=== PATIENT | male | born 1995 | race Caucasian/White ===

== ENCOUNTER 2017-04-05 03:20 | Emergency (ER) | payer BC ==
[2017-04-05 03:38] VITALS: RESP 18; TEMP 97.5
--- NOTE | 2017-04-05 03:43 | EDPHY ---
H & P Stated Complaint: Fell off balcony (10 feet), ETOH, +LOC, L elbow, L ankle, Head pain. HPI/ROS: HPI CHIEF COMPLAINT: Fall 10 feet off a balcony, left elbow pain, left ankle pain, head injury at 4:00 p.m. afternoon or 12 hours ago. HISTORY OF PRESENT ILLNESS: This patient very pleasant 22-year-old male he denies having any significant medical history does not take any daily medications he presents emergency room after he fell off a balcony 10 feet. This happened at 4:00 p.m. this afternoon or 12 hours ago. He came into the emergency room tonight with his girlfriend by private vehicle for ongoing left ankle pain and left elbow pain. Patient reports that he fell 10 feet landing on his left elbow left ankle. Positive LOC. Patient reports that he was intoxicated time after drinking multiple beers multiple shots. He states the reason he came to the emergency room denies his ongoing left ankle pain and left elbow pain. He denies chest pain or shortness of breath denies abdominal pain. He did have head strike complains of a headache left posterior occiput region. He fell 10 feet and against concrete. This was unwitnessed by his girlfriend. He now presents emergency room GCS 15 alert or x4. Past Medical History: Denies significant medical history Past Surgical History: Denies significant surgical history Social History: [employer] student, endorses alcohol this afternoon. Denies illicit drugs or tobacco. Family History: Noncontributory ROS REVIEW OF SYSTEMS: A comprehensive 10 point review of systems is otherwise negative aside from elements mentioned in the history of present illness. Exam Constitutional appears well nontoxic, triage nursing summary reviewed, vital signs reviewed, awake/alert. Eyes normal conjunctivae and sclera, EOMI, PERRLA. HENT head/neck left posterior occiput hematoma present, no laceration, moist mucus membranes, no epistaxis, neck supple/ no meningismus, no raccoon eyes. Respiratory clear to auscultation bilaterally, normal breath sounds, no respiratory distress, no wheezing. Cardiovascular rate normal, regular rhythm, no murmur, no edema, distal pulses normal. Gastrointestinal soft, non-tender, no rebound, no guarding, normal bowel sounds, no distension, no pulsatile mass. Genitourinary no CVA tenderness. Musculoskeletal no midline vertebral tenderness, full range of motion, no calf swelling, no tenderness of extremities, no meningismus, good pulses, neurovascularly intact. Left upper extremity: Limited range of motion due to pain and swelling of the left elbow. There is swelling to left lateral elbow. He is distally neurovascular intact good distal pulse. Good cap refill. Good stone belt sander strength. Left lower extremity: Compartments are soft. Tender palpation over the lateral malleolus and lateral foot. Good distal pulse. Good cap refill. Sensation intact. Neurovascular intact. Skin pink, warm, & dry, no rash, skin atraumatic. Neurologic awake, alert and oriented x 3, AAOx3, moves all 4 extremities equally, motor intact, sensory intact, CN II-XII intact, normal cerebellar, normal vision, normal speech. Psychiatric normal mood/affect. Heme/Lymph/Immune no lymphadenopathy. Differential Diagnosis: Includes but is not limited to in a particular order closed-head injury, intracranial bleed, skull fracture, cervical spine injury, chest wall injury, elbow fracture, left ankle sprain, left ankle fracture, left foot fracture left foot sprain. Medical Decision Making: Plan for this patient CT head without contrast CT cervical spine without contrast, IV pain control with IV pain medicine fentanyl , IV Zofran nausea, IV fluids for hydration, chest x-ray two view, x-ray left elbow, x-ray left foot, x-ray left ankle. Re-evaluation: CT scan of the head and neck without contrast are negative for acute traumatic injury called to me by Dr. Oscar Underwood X-ray of the chest two view interpreted by myself. Negative for acute cardiopulmonary disease specifically no traumatic injury. No pneumothorax visualized. X-ray of the left elbow shows a radial head fracture. X-ray of the left ankle shows soft tissue swelling but no fracture. X-ray of the left foot shows soft tissue swelling but no fracture. This patient be splinted posterior long-arm for his left radial head fracture will need orthopedic follow-up. Be placed in a sling as well for comfort. Walking boot for his left ankle sprain. Additionally went over return precautions understands return emergency room if develops worsening symptoms includes headache, vomiting worsening pain. I will provide him ibuprofen for pain control as well as [place]. Close orthopedic follow-up. I have answered all his questions any understands. Source: Patient - Personal History Current Tetanus/Diphtheria Vaccine: Unsure Current Tetanus Diphtheria and Acellular Pertussis (TDAP): Unsure - Medical/Surgical History Hx Asthma: No Hx Chronic Respiratory Disease: No Hx Diabetes: No Hx Cardiac Disease: No Hx Renal Disease: No Hx Cirrhosis: No Hx Alcoholism: No Hx HIV/AIDS: No Hx Splenectomy or Spleen Trauma: No Other PMH: ADHD. - Social History Smoking Status: Never smoked Constitutional: Initial Vital Signs Temperature (C) 36.4 C 04/05/17 03:33 Heart Rate 86 04/05/17 03:33 Respiratory Rate 18 04/05/17 03:33 Blood Pressure 123/70 H 04/05/17 03:33 O2 Sat (%) 95 04/05/17 03:33 O2 Delivery Mode Room Air Allergies/Adverse Reactions: No Known Allergies Allergy (Verified 05/07/14 10:16) Home Medications: Medication Instructions Recorded Amphet Asp and D/Amphet [Adderall] 10 mg PO 05/07/14 Hydrocodone/APAP 5/325 [Day[place] 1 - 2 tab PO Q4H PRN #10 tab 04/05/17 5/325] Ibuprofen [Motrin (*)] 800 mg PO Q6-8PRN #10 tab 04/05/17 Medical Decision Making - Data Points Medications Given: Discontinued Medications Fentanyl (Sublimaze) 50 mcg IVP EDNOW ONE Stop: 04/05/17 03:48 Last Admin: 04/05/17 03:59 Dose: 50 mcg Sodium Chloride (Ns) 1,000 mls @ 0 mls/hr IV ONCE ONE PRN Reason: Wide Open Stop: 04/05/17 03:48 Last Admin: 04/05/17 03:58 Dose: 1,000 mls Ondansetron HCl (Zofran) 4 mg IVP EDNOW ONE Stop: 04/05/17 03:48 Last Admin: 04/05/17 03:59 Dose: 4 mg Departure - Departure Disposition: Home, Routine, Self-Care Clinical Impression: Fall Qualifiers: Encounter type: initial encounter Qualified Code(s): W19.XXXA - Unspecified fall, initial encounter Elbow fracture, left Qualifiers: Encounter type: initial encounter Fracture type: closed Qualified Code(s): S42.402A - Unspecified fracture of lower end of left humerus, initial encounter for closed fracture Foot fracture, left Qualifiers: Encounter type: initial encounter Fracture type: closed Qualified Code(s): S92.902A - Unspecified fracture of left foot, initial encounter for closed fracture Ankle sprain Qualifiers: Encounter type: initial encounter Involved ligament of ankle: other ligament Laterality: left Qualified Code(s): S93.492A - Sprain of other ligament of left ankle, initial encounter Closed head injury Qualifiers: Encounter type: initial encounter Qualified Code(s): S09.90XA - Unspecified injury of head, initial encounter Concussion Qualifiers: Encounter type: initial encounter Loss of consciousness presence/duration: with LOC of unspecified duration Qualified Code(s): S06.0X9A - Concussion with loss of consciousness of unspecified duration, initial encounter Condition: Good Instructions: Ankle Sprain (ED), Elbow Fracture (ED), Concussion (ED) Additional Instructions: 1. Take ibuprofen for mild pain. 2. Take [place] for severe pain. 3. Follow up with Orthopedics. Please call their for an appointment. Referrals: NONE *PRIMARY CARE P,. [Primary Care Provider] - As per Instructions Farzana Garcia MD [Medical Doctor] - As per Instructions Prescriptions: Hydrocodone/APAP 5/325 [Day[place] 5/325] 1 - 2 tab PO Q4H PRN #10 tab PRN Reason: Pain, Moderate Ibuprofen [Motrin (*)] 800 mg PO Q6-8PRN #10 tab
[2017-04-05] MEDS ORDERED: fentaNYL 100 MCG/2 ML INJ IVP ONE (03:47)
[2017-04-05] MEDS ORDERED: NS 1,000 ML IV ONE (03:47)
[2017-04-05] MEDS ORDERED: ONDANSETRON 4 MG/2 ML VIAL IVP ONE (03:47)
[2017-04-05] MEDS ORDERED: BENZOCAINE UNIT DOSE SPRAY HURRICAINE MM ONE (04:23)
[2017-04-05] MEDS ORDERED: HYDROmorphONE/DILAUDID 1 MG/ML INJ IVP ONE (04:48)
[2017-04-05] MEDS ORDERED: HYDROmorphONE/DILAUDID 1 MG/ML INJ ONE (04:49)
[2017-04-05 05:39] VITALS: BP 126/80; PULSE 77; O2SAT 100
[2017-04-05] MEDS ORDERED: HYDROCODONE/APAP 5/325 TAB ONE (05:45)
[2017-04-05] MEDS ORDERED: HYDROCODONE/APAP 5/325 TAB PO ONE (05:46)
== END 2017-04-05 06:03 | disposition home or self-care (01) ==
DX: S52.125A Nondisplaced fracture of head of left radius, initial encounter for closed fracture (principal); S92.902A Unspecified fracture of left foot, initial encounter for closed fracture; S93.492A Sprain of other ligament of left ankle, initial encounter; S06.0X9A Concussion with loss of consciousness of unspecified duration, initial encounter; W17.89XA Other fall from one level to another, initial encounter; R11.10 Vomiting, unspecified
CPT/HCPCS: 96374; A4565; J1170; J2405; J3010; L4386